=== PATIENT | male | born 1975 | race African-American/Black ===

== ENCOUNTER 2016-12-21 18:47 | Emergency (ER) | payer OTHER ==
[~2016-12-21] VITALS: Ht 175.3 cm; Wt 69.5 kg
[~2016-12-21 18:47] MED LIST: SODI44SP11 NS
[2016-12-21 19:00] VITALS: Ht 175.3 cm; Wt 69.5 kg
[2016-12-21] MEDS ORDERED: ONDANSETRON (ODT) 4 MG TAB ODT STA (20:26)
[2016-12-21] MEDS ORDERED: MECLIZINE 12.5 MG TAB PO ONE (20:30)
[2016-12-21] MEDS ORDERED: SOD CHLORIDE 0.9% 1,000 ML IV STA (20:56)
--- NOTE | 2016-12-21 21:18 | RADRPT ---
PROCEDURE: XR Chest. CLINICAL INDICATION: chest pain TECHNIQUE: Single frontal view of the chest was obtained COMPARISON: None FINDINGS: The heart and mediastinum are within normal limits. The lungs are clear. There is no pleural effusion or pneumothorax. RPTAT: AA IMPRESSION: No acute disease. .Eddi Ram MD, Date Time Electronically viewed and signed by .Eddi Ram MD, on 12/21/2016 21:17 .S/
[2016-12-21 22:04] LABS: HEMATOCRIT 44.8 % (42.0-52.0); HEMOGLOBIN 14.2 g/dl (14.0-18.0); MEAN CORPUSCULAR HEMOGLOBIN 28.5 pg (29.0-33.0); MEAN CORPUSCULAR HGB CONC 31.7 g/dl (32.0-37.0); MEAN PLATELET VOLUME 10.8 fl (7.4-10.4); PLATELET COUNT 226 10^3/UL (140-440); RED BLOOD COUNT 4.97 10^6/ul (4.70-6.10); RED CELL DISTRIBUTION WIDTH 13.8 % (11.5-14.5); UNCORRECTED WBC 12.1 10^3/ul (4.8-10.8); WHITE BLOOD COUNT 12.1 10^3/ul (4.8-10.8)
[2016-12-21 22:05] LABS: CONDITION 1; LH ANALYZER COMMENTS 1; SUSPECT 1
[2016-12-21 22:06] LABS: CHLORIDE 101 mmol/L (97-110); POTASSIUM 3.9 mmol/L (3.5-5.1); SODIUM 145 mmol/L (135-144)
[2016-12-21 22:09] LABS: ANION GAP 23 (8-16); BLOOD UREA NITROGEN 26 mg/dl (7-20); CARBON DIOXIDE 25 mmol/L (21-31); CREATININE 1.01 mg/dl (0.61-1.24); GLUCOSE 130 mg/dl (70-220)
[2016-12-21 22:10] LABS: CALCIUM 9.9 mg/dl (8.4-10.2)
[2016-12-21 22:11] LABS: D-DIMER 265.84 ng/ml (<460)
[2016-12-21 22:25] LABS: TROPONIN-I < 0.012 ng/ml (0.00-0.12)
[2016-12-21] MEDS ORDERED: ONDA4TAB14 PO (22:36)
[2016-12-21] MEDS ORDERED: MECL-77 PO (22:36)
--- NOTE | 2016-12-21 22:42 | ERD ---
ER Documentation Chief Complaint Date/Time DATE: 12/21/16 TIME: 22:38 Chief Complaint Dizziness for a month HPI Patient is a 41-year-old male who states he has had intermittent dizziness for 1 month. He denies feeling dizziness at this time and states right now he feels fine. He describes the dizziness as feeling nauseous. Denies any chest pain or shortness of breath. Denies any visual changes photosensitivity or difficulty speaking or walking or balancing. 0 out of 10 pain. Denies fever. Denies cough. Has not tried any medications for this at home. ROS All systems reviewed and are negative except as per history of present illness. Medications Home Meds Active Scripts Ondansetron (Ondansetron Odt) 4 Mg Tab.rapdis, 4 MG PO Q6H Y for NAUSEA AND/OR VOMITING, #20 TAB Prov:MARU MCKINNEY PA-C 12/21/16 Meclizine Hcl* (Meclizine Hcl*) 25 Mg Tablet, 25 MG PO Q8H Y for DIZZINESS, #30 TAB Prov:MARU MCKINNEY PA-C 12/21/16 Sodium Chloride (Saline Nasal Flint) 45 Ml [place], 2 SPRAYS NS Q2H, #1 BOT Prov:LALY BROCK NP 11/02/15 Allergies Allergies: Coded Allergies: No Known Allergy (Unverified , 11/02/15) PMhx/Soc Medical and Surgical Hx: pt denies Medical Hx, pt denies Surgical Hx History of Surgery: No Anesthesia Reaction: No Hx Neurological Disorder: No Hx Respiratory Disorders: No Hx Cardiac Disorders: No Hx Psychiatric Problems: No Hx Miscellaneous Medical Probl: No Hx Alcohol Use: No Hx Substance Use: No Hx Tobacco Use: No Smoking Status: Never smoker FmHx Family History: No diabetes Physical Exam Vitals Vital Signs Date Time Temp Pulse Resp B/P Pulse Ox O2 Delivery O2 Flow Rate FiO2 12/21/16 19:00 97.5 68 16 132/81 98 Physical Exam General: well developed, well nourished, alert, nontoxic, no distress Head: normocephalic, atraumatic Eyes: PERRL, normal conjunctiva Neck: Supple, nontender, no lymphadenopathy, no midline tenderness Ears: no tenderness over mastoids bilaterally, TMs nonerythematous, no exudates in canal Oropharynx: no tonsilar erythema or edema, uvula midline, no exudates, no kissing tonsils, no drooling Respiratory: Clear to auscaultation bilaterally, speaks in full sentences, no use of accesory muscles or labored breathing, no rales, ronchi, or wheezing Cardiovascular: RRR, No murmurs GI: soft, non tender, non distended, negative murphys sign, negative mcburneys point tenderness, no cva tenderness bilaterally, no rebound or guarding Back: no midline tenderness, no step offs or bony abnormalities, sensation to light touch in tact Extremities: moving all extremities normally, normal gait, no edema Neuro: CN 2-12 intact, normal speech, shallot cleaner strength 5/5 bilaterally, rapid alternating movements wnl, romberg and pronator drift wnl Result Diagram: 12/21/16210912/21/162109 Results 24 hrs Laboratory Tests Test 12/21/16 20:40 12/21/16 21:10 Bedside Glucose 120mg/dL Anion Gap 23 Blood Morphology Comment Blood Urea Nitrogen 26mg/dl Calcium Level 9.9mg/dl Carbon Dioxide Level 25mmol/L Chloride Level 101mmol/L Creatinine 1.01mg/dl D-Dimer 265.84ng/ml D-Dimer Comment Glucose Level 130mg/dl Hematocrit 44.8% Hemoglobin 14.2g/dl Mean Corpuscular Hemoglobin 28.5pg Mean Corpuscular Hemoglobin Concent 31.7g/dl Mean Corpuscular Volume 90.0fl Mean Platelet Volume 10.8fl Platelet Count 93777^3/UL Potassium Level 3.9mmol/L Red Blood Count 4.9710^6/ul Red Cell Distribution Width 13.8% Sodium Level 145mmol/L Troponin I < 0.012ng/ml White Blood Count 12.110^3/ul Current Medications Medications (Trade) Dose Ordered Sig/Safia Route PRN Reason Start Time Stop Time Status Last Admin Dose Admin Meclizine HCl (Antivert) 25 mg ONCE ONCE PO 12/21/16 20:30 12/21/16 20:31 DC 12/21/16 20:37 Ondansetron HCl 4 mg 4 mg ONCE STAT ODT 12/21/16 20:26 12/21/16 20:27 DC 12/21/16 20:37 Sodium Chloride (NS) 1,000 ml @ 1,000 mls/hr Q1H STAT IV 12/21/16 20:56 12/21/16 21:55 DC 12/21/16 21:15 Procedures/MDM Patient is a 41-year-old male who presents with intermittent dizziness. At this time he denies any dizziness. Triage vital signs are within normal limits. Patient was given Zofran and meclizine and at discharge he said he felt much better. An EKG was performed initially that showed sinus tachycardia with a rate of 124 with inverted T waves in the lateral leads as reviewed by my supervising physician Dr. Garcia. Given these results Jose recommended I give the patient fluids and check labs including CBC, chemistry panel, d-dimer and troponin. Patient's labs including d-dimer and troponin were negative. Patient was given fluids and repeat EKG showed sinus tachycardia with a rate of 102. All lab and physical exam findings were reviewed to my supervising physician Dr. Garcia and we do agree he is from outpatient management. Low concern for ACS or pulmonary embolism at this time. He had good relief of his symptoms with Zofran and Antivert and therefore he will be discharged with those medications as well. Recommended this patient follow up with her primary care doctor within 48 hours or return to the emergency room for any worsening of symptoms. However this time I do believe there is suitable for outpatient management. I answered all their questions and they agreed with the plan and were discharged home. Departure Diagnosis: Primary Impression: Dizziness Condition: Stable Patient Instructions: Dizziness, Unk Cause Additional Instructions: Call your primary care doctor TOMORROW for an appointment during the next 1-2 days.See the doctor sooner or return here if your condition worsens before your appointment time. MARU MCKINNEY PA-C Dec 21, 2016 22:42
[2016-12-21 22:57] VITALS: BP 112/62; PULSE 87; RESP 16; TEMP 97.5
[2016-12-22 00:21] LABS: LYMPHOCYTES # 2.1 10^3/ul (0.8-2.9); MONOCYTE # 0.1 10^3/ul (0.3-0.9); NEUTROPHIL # 9.9 10^3/ul (1.6-7.5)
== END 2016-12-21 22:57 | disposition home or self-care (01) ==
LOC: FTE 18:47
DX: R42 Dizziness and giddiness (principal); R11.0 Nausea
CPT/HCPCS: 71010; 80048; 82962; 84484; 85025; 85378; 93005; J7030; Z7502; Z7610